=== PATIENT | female | born 1965 | race Two or more races ===

== ENCOUNTER 2018-06-21 18:23 | Emergency (ER) | payer OTHER ==
[~2018-06-21] VITALS: Ht 152.4 cm; Wt 45.4 kg
[2018-06-21 18:33] VITALS: BP 119/65
[2018-06-22] MEDS ORDERED: IBUPROFEN 800 MG TAB PO ONE (00:30)
== END 2018-06-22 01:44 | disposition home or self-care (01) ==
LOC: ER 18:30
DX: S60.041A Contusion of right ring finger without damage to nail, initial encounter (principal); L08.9 Local infection of the skin and subcutaneous tissue, unspecified; X58.XXXA Exposure to other specified factors, initial encounter; Y93.G1 Activity, food preparation and clean up; Y99.8 Other external cause status; Y92.89 Other specified places as the place of occurrence of the external cause